=== PATIENT | male | born 1975 | race Caucasian/White ===

== ENCOUNTER 2022-03-21 01:36 | Emergency (ER) | payer OTHER ==
[2022-03-21] MEDS ORDERED: ERYTHROMYCIN O3.5 GM OD (03:54)
== END 2022-03-21 04:25 | disposition home or self-care (01) ==
LOC: ER1 01:36
DX: S05.01XA Injury of conjunctiva and corneal abrasion without foreign body, right eye, initial encounter (principal); X58.XXXA Exposure to other specified factors, initial encounter; Z23 Encounter for immunization
CPT/HCPCS: 90471; 90715; 99283